=== PATIENT | female | born 1990 | race Hispanic/Latino ===

== ENCOUNTER 2016-09-16 21:01 | Inpatient (IN) | payer MEDICAID, OTHER ==
[2016-09-16] MEDS ORDERED: LACTATED RINGERS 1,000 ML ONE (23:49)
[2016-09-17] MEDS ORDERED: SUBLIMAZE ONE (00:12)
[2016-09-17] MEDS ORDERED: MINERAL OIL PO PRN (00:15)
[2016-09-17] MEDS ORDERED: STADOL IV PRN (00:15)
[2016-09-17] MEDS ORDERED: PHENERGAN PO PRN ×2 (00:15→06:16)
[2016-09-17] MEDS ORDERED: BRETHINE IVP PRN (00:15)
[2016-09-17] MEDS ORDERED: ePHEDrine SULFATE IV PRN ×2 (00:15→01:41)
[2016-09-17] MEDS ORDERED: SUBLIMAZE IV PRN (00:15)
[2016-09-17] MEDS ORDERED: BRETHINE SUB-Q PRN (00:15)
--- NOTE | 2016-09-17 00:23 | History and Physical Report ---
History of Present Illness Date of examination: 09/17/16 Date of admission: 09/16/16 23:42 Chief complaint: contractions History of present illness: 26 year old who presents wtih c/o active contractions. care at [facility] with uncomplicated course. Past History Past Medical History: no pertinent history Past Surgical History: no surgical history [employer] History: herpes Social history: - Obstetrical History Expected Date of Delivery: 09/17/16 Actual Gestation: 40 Week(s) 0 Day(s) : 3 Number of Living Children: 2 Medications and Allergies Allergies Allergy/AdvReac Type Severity Reaction Status Date / Time No Known Allergies Allergy Verified 03/30/15 05:07 Home Medications Medication Instructions Recorded Confirmed Last Taken Type Pnv Plus Multivit Tab 1 tab PO DAILY 03/30/15 03/30/15 03/29/15 History Active Meds: Active Medications Influenza Virus Vaccine Quadrival (Fluarix Quad [id number](36 Mos+)) 60 mcg IM .ONCE ONE Stop: 09/17/16 12:01 Review of Systems All systems: negative Genitourinary: vaginal discharge, pelvic pain, contractions - Vital Signs Vital signs: Vital Signs Pulse Pulse Ox 99 H 92 09/16/16 21:11 09/16/16 21:11 Temp Pulse Resp BP Pulse Ox 97.7 F 94 H 18 110/57 96 09/16/16 21:34 09/17/16 00:18 09/16/16 21:34 09/16/16 23:09 09/17/16 00:18 - Physical Exam Breasts: Cardiovascular: Regular rate, Normal S1, Normal S2 Lungs: Positive: Clear to auscultation, Normal air movement Abdomen: Positive: normal appearance, soft, normal bowel sounds. Negative: distention, tenderness Genitourinary (Female): Positive: normal external genitalia, normal perenium Vulva: both: normal Vagina: Positive: normal moisture. Negative: discharge Cervix: Negative: lesion, discharge Uterus: Positive: normal size, normal contour Adnexa: both: normal Anus/Rectum: Positive: normal perianal skin, heme negative. Negative: rectal mass, hemorrhoids Extremities: Deep Tendon Reflex Grade: Normal +2 - Obstetrical Cervical Dilatation: 5 Cervical Effacement Percentage: 90 station: -2 Uterine Contraction Pattern: Irregular Uterine Contraction Intensity: Moderate Results All other labs normal. Assessment and Plan IUP at 40 weeks today in active labor. Admit to L&D. anticipate
[2016-09-17 00:43] LABS: Hematocrit 37.2 % (30.3-42.9); Hemoglobin 12.6 gm/dl (10.1-14.3); Mean Corpuscular HGB Conc 34 % (30-34); Mean Corpuscular Hemoglobin 30 pg (28-32); Mean Corpuscular Volume 88 fl (79-97); Platelet Count 285 K/mm3 (140-440); Red Blood Count 4.25 M/mm3 (3.65-5.03); Red Cell Distribution Width 14.1 % (13.2-15.2); White Blood Count 18.7 K/mm3 (4.5-11.0)
[2016-09-17] MEDS ORDERED: LACTATED RINGERS 1,000 ML IV SCH (01:00)
[2016-09-17] MEDS ORDERED: PITOCin/NS 30 UNIT/500ML 500 ML IV SCH ×2 (01:00)
[2016-09-17] MEDS ORDERED: PITOCin/NS 20 UNIT/1000ML DRIP 1,000 ML IV SCH (01:00)
[2016-09-17] MEDS ORDERED: ePHEDrine SULFATE ONE (01:13)
[2016-09-17] MEDS ORDERED: NARCAN 2 MG/2 ML IV PRN (01:41)
--- NOTE | 2016-09-17 01:41 | Anesthesia Consultation ---
Anesthesia Consult and Med Hx Date of service: 09/17/16 - Airway Anesthetic Teeth Evaluation: Good ROM Head & Neck: Adequate Mental/Hyoid Distance: Adequate Mallampati Class: Class II Intubation Access Assessment: Probably Good - Pulmonary Exam CTA: Yes - Cardiac Exam Cardiac Exam: RRR - Pre-Operative Health Status ASA Pre-Surgery Classification: ASA2 Proposed Anesthetic Plan: Epidural - Pulmonary Hx Asthma: No COPD: No Hx Pneumonia: No - Cardiovascular System Hx Hypertension: No - Central Nervous System Hx Seizures: No Hx Psychiatric Problems: No - Endocrine Hx Renal Disease: No Hx End Stage Renal Disease: No Hx Hypothyroidism: No Hx Hyperthyroidism: No - Hematic Hx Anemia: No Hx Sickle Cell Disease: No - Other Systems Hx Alcohol Use: No
[2016-09-17] MEDS ORDERED: fentaNYL-BUPIV 2 MCG/ML-0.125% 100 ML EPIDURAL SCH (02:00)
[2016-09-17] MEDS ORDERED: ZOFRAN IV PRN ×2 (03:02→06:16)
--- NOTE | 2016-09-17 05:08 | Procedure Note ---
OB Delivery Note - Delivery Date of Delivery: 09/17/16 Surgeon: MATIAS MOREAU Estimated blood loss: 200cc - Vaginal Delivery presentation: vertex Delivery position: OA Intrapartum events: none Delivery monitor: external FHT, external uterine Route of delivery: Delivery placenta: spontaneous Delivery cord: 3 umbilical vessels Episiotomy: none Delivery laceration: none Anesthesia: epidural Delivery comments: Viable female delivered over intact perineum in op position with no nuchal cord, Mouth and nose suctioned. placed on maternal abdomen. Cord clamped and cut when done pulsating. placenta delivered spontaneously and intact with 3vc. No lacerations. Patient tolerated procedure well. - Infant A at 1 minute: 8 at 5 minutes: 9 Gender: Female (7 pounds 11 ounces, 3486 grams)
[2016-09-17] MEDS ORDERED: TYLENOL PO ONE (05:10)
[2016-09-17] MEDS ORDERED: BENADRYL PO PRN (06:16)
[2016-09-17] MEDS ORDERED: DERMOPLAST TP PRN (06:16)
[2016-09-17] MEDS ORDERED: MILK OF MAGNESIA PO PRN (06:16)
[2016-09-17] MEDS ORDERED: LANSINOH TP PRN (06:16)
[2016-09-17] MEDS ORDERED: TYLENOL PO PRN (06:16)
[2016-09-17] MEDS ORDERED: PHENERGAN PR PRN (06:16)
[2016-09-17] MEDS ORDERED: TUCKS PAD TP PRN (06:16)
[2016-09-17] MEDS ORDERED: SODIUM CHLORIDE FLUSH SYRINGE 10 ML IV PRN (06:16)
[2016-09-17] MEDS ORDERED: DULCOLAX PR PRN (06:16)
[2016-09-17] MEDS: NORCO 5/325 PO PRN ×3 (06:38→20:07)
[2016-09-17] MEDS: MOTRIN PO SCH ×4 (06:39→23:36)
[2016-09-17] MEDS: PRENATAL VITAMIN PO SCH (10:20)
[2016-09-17] MEDS: COLACE PO SCH ×2 (10:20→22:13)
[2016-09-17] MEDS ORDERED: FLUARIX QUAD 2016-2017(36 MOS+) IM ONE (12:00)
[2016-09-17 20:24] LABS: Hematocrit 31.9 % (30.3-42.9); Hemoglobin 10.7 gm/dl (10.1-14.3)
[2016-09-18] MEDS: MOTRIN PO SCH ×3 (05:55→18:40)
[2016-09-18] MEDS ORDERED: BOOSTRIX IM ONE (06:00)
[2016-09-18] MEDS: NORCO 5/325 PO PRN ×3 (07:33→20:25)
[2016-09-18] MEDS: PRENATAL VITAMIN PO SCH (10:54)
[2016-09-18] MEDS: COLACE PO SCH ×2 (10:54→22:15)
--- NOTE | 2016-09-18 12:05 | Progress Note ---
Subjective Date of service: 09/18/16 (No c/o PEPPER, N/V at this time. Pt able to ambulate well without negative sequelae. No residual numbness noted per pt.) Objective - Constitutional Vitals: Vital Signs - 12hr 09/18/16 09/18/16 00:52 07:40 Temperature 97.6 F 97.6 F Pulse Rate [ 76 Left Radial] Pulse Rate [ 74 Right Radial] Respiratory 18 18 Rate Blood Pressure 104/74 [Left Arm] Blood Pressure 102/64 [Right Arm] - Labs CBC & Chem 7: 09/17/16 18:23
--- NOTE | 2016-09-18 12:24 | Progress Note ---
Assessment and Plan O: VSS AF PP H/H: 10.7/31.9 A: PP Day 1 Anemia P: Iron QD D/C am Subjective - Subjective Date of service: 09/18/16 Patient reports: appetite normal, voiding normally, pain well controlled, flatus , ambulating normally Rudolph: doing well, nursing well, bottle feeding Objective - Vital Signs Latest vital signs: Vital Signs Temp Pulse Pulse Resp BP BP 09/18/16 07:40 97.6 F 76 18 102/64 09/18/16 00:52 97.6 F 74 18 104/74 09/17/16 16:20 97.2 F L 74 18 116/58 Intake and Output 09/17/16 09/18/16 09/18/16 22:59 06:59 14:59 Intake Total 600 240 480 Balance 600 240 480 Intake: Oral 360 480 Intake, Free Water 240 240 Other: Total, Intake Amount 360 480 # Voids Void 1 2 1 - Exam Breasts: Present: deferred Abdomen: Present: normal appearance, soft. Absent: distention, tenderness Vulva: both: normal Uterus: Present: normal, firm, fundal height below umbilicus. Absent: bogginess , tenderness Extremities: Present: normal
--- NOTE | 2016-09-18 12:24 | Discharge Summary ---
Providers - Providers Date of Admission: 09/16/16 23:42 Date of discharge: 09/19/16 Attending physician: GUILLERMINA VALLADARES Primary care physician: GUILLERMINA VALLADARES Hospitalization Reason for admission: active labor, IUP at term Delivery: Episiotomy: none Laceration: none Other procedures: none complications: none Discharge diagnosis: IUP at term delivered [place] baby: female Condition at discharge: Good Disposition: DISCHARGED TO HOME OR SELFCARE Plan - Discharge Medications Prescriptions: Ferrous Sulfate [Feosol 325 MG tab] 325 mg PO QDAY #60 tablet Ibuprofen [Motrin 600 MG tab] 600 mg PO Q6HR PRN #30 tablet PRN Reason: Pain - Provider Discharge Summary Activity: routine, no sex for 6 weeks, no heavy lifting 4 weeks, no strenuous exercise Diet: routine Instructions: routine Additional instructions: [] Smoking cessation referral if applicable(refer to patient education folder for contact #) [] Refer to [facility] Booklet Call your doctor immediately for: * Fever > 100.5 * Heavy vaginal bleeding ( >1 pad per hour) * Severe persistent headache * Shortness of breath * Reddened, hot, painful area to leg or breast * Drainage or odor from incision. * Keep incision clean and dry at all times and follow doctor's instructions regarding bathing/showering - Follow up plan Follow up: GUILLERMINA VALLADARES MD [Primary Care Provider] - GUNNER WOOD CNM [Advanced Practice Nurse] - (RTO 4 weeks PP )
[2016-09-18] MEDS ORDERED: FLUARIX QUAD 2016-2017(36 MOS+) IM ONE (13:51)
[2016-09-19] MEDS: MOTRIN PO SCH ×2 (00:25→05:15)
[2016-09-19] MEDS: NORCO 5/325 PO PRN (07:49)
--- NOTE | 2016-09-19 08:17 | Progress Note ---
Assessment and Plan PPD#2 s/p breast and bottle feeding deisres nexplanon for cotnrol bleeding decreased tolerating diet pain meds resolving cramping and pain Anemia recommended irona dn pnv Rx written d/c home today f/u in 4 weeks Subjective - Subjective Date of service: 09/19/16 Principal diagnosis: PPd#2 s/p Patient reports: appetite normal, voiding normally, pain well controlled, flatus , ambulating normally : doing well, nursing well, bottle feeding Objective - Vital Signs Latest vital signs: Vital Signs Temp Pulse Resp BP BP 09/19/16 00:00 98.2 F 74 20 117/57 09/18/16 16:22 97.5 F L 76 20 110/76 Intake and Output 09/18/16 09/19/16 09/19/16 22:59 06:59 14:59 Intake Total 600 Balance 600 Intake: Oral 600 Other: Total, Intake Amount 240 # Voids Void 1 1 - Exam Breasts: Present: deferred, normal Cardiovascular: Present: Regular rate, Normal S1, Normal S2, No murmurs Lungs: Present: Clear to auscultation, Normal air movement Abdomen: Present: normal appearance, soft, normal bowel sounds. Absent: distention, tenderness, guarding Vulva: both: normal Uterus: Present: normal, firm, fundal height below umbilicus (3 cm). Absent: bogginess, tenderness Extremities: Present: normal Deep Tendon Reflex Grade: Normal +2
[2016-09-19 09:00] VITALS: BP 128/70
[2016-09-19] MEDS ORDERED: FLUARIX QUAD 2016-2017(36 MOS+) IM ONE (12:00)
== END 2016-09-19 12:15 | disposition home or self-care (01) | DRG 775 ==
LOC: TRG 21:01 → LD 23:42 → TRG 23:42 → OB 09-17 06:32
PROVIDERS: ADMIT Obstetrics & Gynecology; ATTEND Obstetrics & Gynecology
PROC: 10E0XZZ Delivery of Products of Conception, External Approach (ICD-10-PCS; principal; 2016-09-17)
PROC: 3E0S3CZ (ICD-10-PCS; 2016-09-17)
PROC: 00HU33Z Insertion of Infusion Device into Spinal Canal, Percutaneous Approach (ICD-10-PCS; 2016-09-17)
PROC: 3E0234Z Introduction of Serum, Toxoid and Vaccine into Muscle, Percutaneous Approach (ICD-10-PCS; 2016-09-18)
DX: O90.81 Anemia of the puerperium (principal); D64.9 Anemia, unspecified; Z37.0 Single live birth; Z3A.40 40 weeks gestation of pregnancy; Z79.899 Other long term (current) drug therapy; Z23 Encounter for immunization; Z83.3 Family history of diabetes mellitus; Z82.49 Family history of ischemic heart disease and other diseases of the circulatory system; Z83.6 Family history of other diseases of the respiratory system; Z80.3 Family history of malignant neoplasm of breast
CPT/HCPCS: 36415; 85014; 85018; 85027; 86850; 86900; 86901; 90471; 90686; 90715; 99211; A6250; G0463; J2405; J2590; J3010; J7120

== ENCOUNTER 2017-06-29 11:44 | Emergency (ER) | payer SELFPAY ==
[2017-06-29 11:51] VITALS: BP 105/69
--- NOTE | 2017-06-29 12:15 | Emergency Department Report ---
ED Back Pain/Injury HPI - General Chief Complaint: Back Pain/Injury Stated Complaint: BACK INJURY Time Seen by Provider: 06/29/17 12:00 Source: patient, family Limitations: No Limitations - History of Present Illness Initial Comments: Patient here reports that she injured her back yesterday at work when she fell accidentally. She says she fell over a baby gate last night again. She stated that she lifted 50 pound object this morning at work and now it hurts to the middle to her lower back. She says she is having some radiation of pain down to her left foot and numbness to 2 toes. Pain is 8 out of 10 and achy. She says she tried Motrin and Tylenol but it didn't help her pain. She denies any history of back pain. Denies any urinary frequency or urgency or burning. Denies any nausea or vomiting. Denies any fever or chills. She denies any loss of bowel or bladder function. Pain better with rest and worse with walking. MD Complaint: back pain, back injury, fall Onset/Timin -: days(s) Similar Symptoms Previously: No Place: work Radiation: left leg Severity: severe Severity scale (0 -10): 10 Quality: aching Consistency: constant Improves With: immobilization Worsens With: movement, walking Context: while lifting, turning/twisting, fall Associated Symptoms: denies: confusion, weakness, chest pain, numbness, difficulty walking, cough, difficulty urinating, diaphoresis, incontinence, fever/chills, constipation, headaches, abdominal pain, loss of appetite, malaise , nausea/vomiting, rash, seizure, shortness of breath, syncope Treatments Prior to Arrival: NSAIDS - Related Data Previous Rx's Medication Instructions Recorded Last Taken Type Ferrous Sulfate [Feosol 325 MG tab] 325 mg PO QDAY #60 tablet 09/18/16 Unknown Rx Cyclobenzaprine [Flexeril 10 MG 10 mg PO TID PRN #15 tablet 06/29/17 Unknown Rx TAB] Ibuprofen [Motrin 600 MG tab] 600 mg PO Q6HR PRN #15 tablet 06/29/17 Unknown Rx Allergies Allergy/AdvReac Type Severity Reaction Status Date / Time No Known Allergies Allergy Verified 06/29/17 11:47 ED Review of Systems ROS: Stated complaint: BACK INJURY Other details as noted in HPI Comment: All other systems reviewed and negative Constitutional: no symptoms reported Respiratory: no symptoms reported Cardiovascular: denies: chest pain, palpitations, edema, syncope Gastrointestinal: denies: abdominal pain, nausea, vomiting, diarrhea, constipation Genitourinary: denies: urgency, dysuria, frequency, hematuria, discharge, abnormal menses Skin: denies: rash Neurological: numbness. denies: headache, paresthesias, confusion, abnormal gait, vertigo ED Past Medical Hx - Past Medical History Previous Medical History?: No Hx Hypertension: No Hx Congestive Heart Failure: No Hx Diabetes: No Hx Deep Vein Thrombosis: No Hx Renal Disease: No Hx Sickle Cell Disease: No Hx Seizures: No Hx Asthma: No Hx COPD: No Hx HIV: No - Surgical History Past Surgical History?: Yes Additional Surgical History: tonsillectomy, Cellulitis removed from right arm - Family History Family history: no significant - Social History Smoking Status: Current Every Day Smoker Substance Use Type: None - Medications Home Medications: Home Medications Medication Instructions Recorded Confirmed Last Taken Type Ferrous Sulfate [Feosol 325 MG tab] 325 mg PO QDAY #60 tablet 09/18/16 Unknown Rx Cyclobenzaprine [Flexeril 10 MG 10 mg PO TID PRN #15 tablet 06/29/17 Unknown Rx TAB] Ibuprofen [Motrin 600 MG tab] 600 mg PO Q6HR PRN #15 tablet 06/29/17 Unknown Rx ED Physical Exam - General Limitations: No Limitations General appearance: alert, in no apparent distress - Head Head exam: Present: atraumatic, normocephalic, normal inspection - Eye Eye exam: Present: normal appearance, PERRL, EOMI. Absent: periorbital swelling , periorbital tenderness Pupils: Present: normal accommodation - ENT ENT exam: Present: normal exam, normal orophraynx, mucous membranes moist - Neck Neck exam: Present: normal inspection, full ROM, other ( No C-spine tenderness) . Absent: tenderness, meningismus, lymphadenopathy, thyromegaly - Respiratory Respiratory exam: Present: normal lung sounds bilaterally. Absent: respiratory distress, chest wall tenderness, accessory muscle use - Cardiovascular Cardiovascular Exam: Present: regular rate, normal rhythm, normal heart sounds. Absent: systolic murmur, diastolic murmur - GI/Abdominal GI/Abdominal exam: Present: soft, normal bowel sounds. Absent: distended, tenderness, guarding, rebound, rigid - Extremities Exam Extremities exam: Present: normal inspection, full ROM, normal capillary refill , other (no clubbing, cyanosis or edema to extremities. No neurovascular compromise. +2 pulses in all extremities). Absent: tenderness, pedal edema, joint swelling, calf tenderness - Expanded Lower Extremity Exam Left Hip exam: Present: normal inspection, full ROM, pelvic stability. Absent: tenderness, swelling, abrasion, laceration, ecchymosis, deformity, crepidus, dislocation, erythema, external rotation, internal rotation, shortening Upper Leg exam: Present: normal inspection, full ROM. Absent: tenderness, swelling, abrasion, laceration, ecchymosis, deformity, crepidus, dislocation, erythema Knee exam: Present: normal inspection, full ROM, full knee extension. Absent: tenderness, swelling, abrasion, laceration, ecchymosis, deformity, crepidus, dislocation, erythema, effusion, pain w/ pronation/supination, posterior draw sign, pain/laxity with valgus, pain/laxity with varus Lower Leg exam: Present: normal inspection, full ROM. Absent: tenderness, swelling, abrasion, laceration, ecchymosis, deformity, crepidus, dislocation, erythema, palpable cord, Ariela's sign Ankle exam: Present: normal inspection, full ROM. Absent: tenderness, swelling , abrasion, laceration, ecchymosis, deformity, crepidus, dislocation, erythema Foot/Toe exam: Present: normal inspection, full ROM. Absent: tenderness, swelling, abrasion, laceration, ecchymosis, deformity, crepidus, dislocation, erythema, amputation, puncture wound, foreign body, calcaneal tenderness, tenderness at base of 5th metatarsal, nail avulsion, subungual hematoma Neuro vascular tendon exam: Present: no vascular compromise. Absent: pulse deficit, abnormal cap refill, motor deficit, sensory deficit, tendon deficit, extremity cold to touch, pallor, abnormal 2-point discrimination, decreased fine /light touch, foot drop, peroneal nerve deficit, significant pain with passive ROM of distal joint Gait: Positive: observed and normal - Back Exam Back exam: Present: normal inspection, full ROM, vertebral tenderness (positive thoracic and lumbar vertebral spine tenderness), other ( able to ambulate without any difficulties.). Absent: tenderness, CVA tenderness (R), CVA tenderness (L), muscle spasm, paraspinal tenderness, rash noted - Expanded Back Exam Expanded Back exam: Absent: saddle anesthesia Back exam: Negative Straight Leg Raising: Left, Right - Neurological Exam Neurological exam: Present: alert, oriented X3, normal gait, motor sensory deficit. Absent: reflexes normal - Expanded Neurological Exam Expanded Neurological exam: Absent: innattentive, memory loss-remote event, memory loss- recent event, ataxia, receptive aphasia, expressive aphasia, total aphasia, tremor, protecting the airway Patient oriented to: Present: person, place, time Speech: Present: fluid speech Cranial nerves: EOM's Intact: Normal, Gag Reflex: Normal, Tongue Deviation: Normal, Nystagmus: Normal, Facial Sensation: Normal Cerebellar function: Romberg: Normal Upper motor neuron: Pronator Drift: Normal, Sensory Extinction: Normal Sensory exam: Upper Extremity Light Touch: Normal, Upper Extremity Temperature: Normal, UE 2 Point Discrimination: Normal, Lower Extremity Light Touch: Normal, Lower Extremity Temperature: Normal, LE 2 Point Discrimination: Normal Motor strength exam: RUE: 5, LUE: 5, RLE: 5, LLE: 5 DTR: bicep (R): 2+, bicep (L): 2+, tricep (R): 2+, tricep (L): 2+, knee (R): 2+ , knee (L): 2+, ankle (R): 2+, ankle (L): 2+ Best Eye Response (Hayden): (4) open spontaneously Best Motor Response (Les): (6) obeys commands Best Verbal Response (Les): (5) oriented Les Total: 15 - Psychiatric Psychiatric exam: Present: normal affect, normal mood - Skin Skin exam: Present: warm, dry, intact, normal color. Absent: rash ED Course Vital Signs 06/29/17 11:48 Temperature 98.6 F Pulse Rate 60 Respiratory 18 Rate Blood Pressure 105/69 O2 Sat by Pulse 100 Oximetry - Reevaluation(s) Reevaluation #1: 06/29/17 14:11 Given Percocet 5/310 52 tablets and Flexeril 10 mg by mouth Emergency room ED Medical Decision Making - Lab Data Lab Results 06/29/17 Range/Units 12:41 Urine Color Straw (Yellow) Urine Turbidity Clear (Clear) Urine pH 6.0 (5.0-7.0) Ur Specific [place] 1.010 (1.003-1.030) Urine Protein <15 mg/dl (Negative) mg/dL Urine Glucose (UA) Neg (Negative) mg/dL Urine Ketones Neg (Negative) mg/dL Urine Blood Mod (Negative) Urine Nitrite Neg (Negative) Urine Bilirubin Neg (Negative) Urine Urobilinogen < 2.0 (<2.0) mg/dL Ur Leukocyte Esterase Neg (Negative) Urine WBC (Auto) < 1.0 (0.0-6.0) /HPF Urine RBC (Auto) 2.0 (0.0-6.0) /HPF U Epithel Cells (Auto) < 1.0 (0-13.0) /HPF - Radiology Data Radiology results: report reviewed CT scan on thoracic spine without contrast showed degenerative degenerative disc disease and moderate size focal central and right paracentral T6 to 7 disc protrusion of uncertain age. Lesser degrees of degenerative disease seen on the other levels. No fracture or subluxation seen. CT scan lumbar spine Small broad-based L5 to S1 central disc protrusion. - Medical Decision Making ED course: Pt here status post falling and injuring her back complaining of mid back and lower back pain that started yesterday. She said her pain increased today became is she lifted a 50 pound object at work this morning. She is returning of radicular pain to her left lower extremity with some numbness to her toes on the left. She denies any medical problems. Denies any history of neuropathy. She did report that she has had back pain in the past but she hadn' t any previous injury and she was not seen by a specialist for this. I discussed with patient that she has multiple disc disease in her thoracic and lumbar spine with disc bulge in thoracic and lumbar spine area .I discussed with her that she will need to follow up with orthopedic doctor and possible refer to a doctor that specializes in spine. She voiced understanding the discharge diagnosis and treatment plan. She was given Percocet 5/325 2 tablets and Flexeril 10 mg when necessary emergency room which she said relieved her pain. I also discussed with her that her urinalysis was negative for any bacterial infection. Patient discharged home with prescription for Flexeril and Motrin with her family member and to follow-up with orthopedic doctor. Critical care attestation.: If time is entered above; I have spent that time in minutes in the direct care of this critically ill patient, excluding procedure time. ED Disposition Clinical Impression: Multilevel degenerative disc disease, Thoracolumbar back pain, Bulging disc, Radiculopathy of leg Fall, accidental Qualifiers: Encounter type: initial encounter Qualified Code(s): W19.XXXA - Unspecified fall, initial encounter Disposition: TO HOME OR SELFCARE Is pt being admited?: No Does the pt Need Aspirin: No Condition: Stable Instructions: Back Pain (ED), Arthralgia (ED), Lumbar Disc Herniation (ED), Thoracic Disc Herniation (ED), Lumbar Radiculopathy (ED), Degenerative Disc Disease (ED), Core Strengthening Exercises (GEN) Additional Instructions: follow up with orthopedic doctor as instructed Please do not drive or operate heavy machinery while taking Flexeril as this medication causes drowsiness Rest for 72 hours Prescriptions: Cyclobenzaprine [Flexeril 10 MG TAB] 10 mg PO TID PRN #15 tablet PRN Reason: Pain Ibuprofen [Motrin 600 MG tab] 600 mg PO Q6HR PRN #15 tablet PRN Reason: Pain Referrals: PRIMARY CARE, [Primary Care Provider] - 3-[address] MD [Staff Physician] - 3-5 Days Forms: Work/School Release Form(ED)
--- NOTE | 2017-06-29 12:55 | Cat Scan Report ---
CT THORACIC SPINE WITHOUT CONTRAST: 06/29/17 12:15:00 CLINICAL: Fall with midline back pain. TECHNIQUE: Volumetric acquisition and 1.25-mm and 2.5 mm axial scan reconstructions of the thoracic spine without contrast. Sagittal and coronal reformats were performed. COMPARISON: None. FINDINGS: Normal vertebral body height and alignment. No fracture or subluxation. Degenerative disc disease with small anterior osteophytes and endplate changes from T6-7 through T8-9. A moderate size central and right paracentral T6-7 focal disc protrusion with some calcification of disc material. IMPRESSION: Degenerative disc disease and moderate size focal central and right paracentral T6-7 disc protrusion of uncertain age. Lesser degrees of degenerative disc disease at other levels. No fracture or subluxation.
--- NOTE | 2017-06-29 12:59 | Cat Scan Report ---
CT LUMBAR SPINE WITHOUT CONTRAST: 06/29/17 11:44:00 CLINICAL: Fall and midline back pain. TECHNIQUE: Volumetric acquisition and 1.25-mm scan reconstructions without contrast. Sagittal and coronal reformats were performed. FINDINGS: Normal vertebral body height, alignment and disk spaces. No fracture or subluxation. L1-2:Intact. L2-3:Intact. L3-4:Intact. L4-5:Intact. L5-S1:Small broad-based central disc protrusion. IMPRESSION: No apparent traumatic injury. Small broad-based L5-S1 central disc protrusion.
[2017-06-29 13:03] LABS: Bilirubin,Urine NEG (Negative); Blood,Urine MOD (Negative); Ketones,Urine NEG (Negative); Leukocyte Esterase,Urine NEG (Negative); Nitrite,Urine NEG (Negative); Protein,Urine <15 mg/dL mg/dL (Negative); Urobilinogen,Urine < 2.0 mg/dL (<2.0)
[2017-06-29 13:04] LABS: WBC,Urine < 1.0 /HPF (0.0-6.0)
[2017-06-29] MEDS ORDERED: FLEXERIL PO ONE (13:44)
[2017-06-29] MEDS ORDERED: PERCOCET 5/325 PO ONE (13:44)
[2017-06-29] MEDS ORDERED: XYLOCAINE 1% MPF 5 mL INFILTRATI ONE (14:32)
[2017-06-29] MEDS ORDERED: ROCEPHIN IM ONE (14:32)
[2017-06-29] MEDS ORDERED: ZITHROMAX PO ONE (14:32)
== END 2017-06-29 14:40 | disposition home or self-care (01) ==
LOC: ED 11:44
DX: M51.35 Other intervertebral disc degeneration, thoracolumbar region (principal); M54.16 Radiculopathy, lumbar region; F17.210 Nicotine dependence, cigarettes, uncomplicated
CPT/HCPCS: 72128; 72131; 81001; 99284